=== PATIENT | male | born 1975 | race Caucasian/White ===

== ENCOUNTER 2016-09-30 19:18 | Emergency (ER) | payer OTHER ==
[2016-09-30 19:32] VITALS: BP 151/80; PULSE 76; TEMP 98; BMI 31.8
[2016-09-30] MEDS ORDERED: DIPHTH,PERTUSS(ACELL),TET 0.5 ML DISP.SYRIN IM ONE (20:31)
[2016-09-30] MEDS ORDERED: IBUPROFEN 600 MG TABLET (FP) PO ONE ×2 (20:32→20:33)
--- NOTE | 2016-09-30 20:37 | PDOC ---
History of Present Illness - General Chief Complaint: Laceration Stated Complaint: LACERATION Time Seen by Provider: 09/30/16 19:44 History Source: Patient Exam Limitations: No Limitations - History of Present Illness Initial Comments: 09/30/16 20:32 Patient tripped and fell striking the edge of a wall plate light fixture incurring a laceration to the left crown of his head. States cleaned it would not stop bleeding so came for evaluation. Uncertain as to tetanus status Timing/Duration: reports: just prior to arrival Severity: Yes: mild, moderate Location: reports: scalp Associated Symptoms: reports: denies symptoms Past History - Travel Traveled outside of the country in the last 30 days: No Close contact w/someone who was outside of country & ill: No - Past Medical History Allergies/Adverse Reactions: Allergies Allergy/AdvReac Type Severity Reaction Status Date / Time No Known Allergies Allergy Verified 09/30/16 19:30 Home Medications: Ambulatory Orders Ibuprofen [Motrin] 600 mg PO TID PRN #20 tablet 02/11/13 Suicide Attempt (Hx): No - Immunization History Immunization Up to Date: No - Psycho/Social/Smoking Cessation Hx Anxiety: No Suicidal Ideation: No Smoking Status: No Smoking History: Never smoked Number of Cigarettes Smoked Daily: 0 Drug/Substance Use Hx: No Substance Use Type: None Review of Systems - Review of Systems Able to Perform ROS?: Yes Is the patient limited [place] proficient: Yes Constitutional: Yes: See HPI. No: Symptoms Reported HEENTM: Yes: Symptoms Reported, See HPI, Other (scalp pain and mild headache) Integumentary: Yes: Symptoms Reported, See HPI, Other (laceration to left scalp) Neurological: Yes: See HPI, Headache. No: Symptoms reported All Other Systems: Reviewed and Negative *Physical Exam - Vital Signs Last Vital Signs Temp Pulse Resp BP Pulse Ox 98 F 76 18 151/80 98 09/30/16 19:31 09/30/16 19:31 09/30/16 19:31 09/30/16 19:31 09/30/16 19:31 - Physical Exam General Appearance: Yes: Nourished, Appropriately Dressed, Apparent Distress HEENT: positive: JIMBO, Normal ENT Inspection, TMs Normal, Pharynx Normal, Other (3 cm laceration to the left aspect crown of head, no active pulsatile bleeding but bruising. No hematoma noted.) Neck: positive: Supple. negative: Lymphadenopathy (R), Lymphadenopathy (L) Respiratory/Chest: positive: Lungs Clear, Normal Breath Sounds Procedures - Laceration/Wound Repair Left Head Wound Length: 2.6 to 5.0 cm Wound Explored: clean Wound's Depth, Shape: superficial, linear Irrigated w/ Saline: No Anesthesia: 1% Lidocaine w/ Epi Wound Repaired With: Custar Number of Sutures: 6 Layer Closure: No Progress Note - Progress Note Progress Note: Scalp laceration repaired with 6 celina. Patient tolerated well. Tetanus/ diphtheria/pertussis booster updated today *DC/Admit/Observation/Transfer Diagnosis at time of Disposition: Scalp laceration Qualifiers: Encounter type: initial encounter Qualified Code(s): S01.01XA - Laceration without foreign body of scalp, initial encounter - Discharge Dispostion Disposition: HOME Condition at time of disposition: Stable Admit: No - Patient Instructions Printed Discharge Instructions: DI for Laceration Repair of the Scalp Additional Instructions: Rest, no exercise or gym until celina are removed May use ice packs tonight as needed for swelling and pain Put a towel over pillow/old pillowcase to avoid damage from bacitracin and bleeding to linens until celina removed Use antibiotic cream/ointment once in the morning once at night until celina are removed May use Tylenol or Motrin for pain relief Return to emergency department for worsening pain, swelling, bleeding, or evidence of serious head injury Staple removal in 5-7 days - Post Discharge Activity Work/School Note: Back to Work
== END 2016-09-30 20:44 | disposition home or self-care (01) ==
LOC: JERFT 19:18
PROC: 3E0234Z Introduction of Serum, Toxoid and Vaccine into Muscle, Percutaneous Approach (ICD-10-PCS; principal; 2016-09-30)
PROC: 0HQ0XZZ Repair Scalp Skin, External Approach (ICD-10-PCS; 2016-09-30)
DX: S01.01XA Laceration without foreign body of scalp, initial encounter (principal); W01.198A Fall on same level from slipping, tripping and stumbling with subsequent striking against other object, initial encounter; Y93.89 Activity, other specified; Y92.89 Other specified places as the place of occurrence of the external cause; Y99.8 Other external cause status
CPT/HCPCS: 12002-25; 90471; 90715; 99281-25

== ENCOUNTER 2016-10-04 15:34 | Emergency (ER) | payer OTHER ==
[2016-10-04 15:44] VITALS: BP 144/90; PULSE 75; TEMP 98.1; BMI 31.8
--- NOTE | 2016-10-04 16:10 | PDOC ---
Suture Removal/Wound Check HPI - History of Present Illness Chief Complaint: Suture/Staple Removal(Here) Stated Complaint: SUTURE REMOVAL Time Seen by Provider: 10/04/16 16:05 History Source: Yes: Patient Exam Limitations: Yes: No Limitations Treated at: [facility] ED - Previous ED Treatment Type of procedure performed on last visit: Yes: Laceration Repair Tetanus Immunization: Yes: Up to Date Antibiotics Prescribed: No Past History - Travel Traveled outside of the country in the last 30 days: No Close contact w/someone who was outside of country & ill: No - Past Medical History Allergies/Adverse Reactions: Allergies No Known Allergies Allergy (Verified 10/04/16 15:44) Home Medications: Ambulatory Orders NK [No Known Home Medication] 10/04/16 General: Yes: no pertinent history - Immunization History Immunizations Up to Date: No Tetanus Status: Unknown - Social History Smoking History: No Smoking Status: Never smoked Number of Ciarettes Per Day: 0 Alcohol Use: none Drug Use: none Suture Removal/Wound Check PE - Physical Exam Laceration/Wound Check Symptoms: reports: None Current Severity Level: None *Review of Systems - Review of Systems Able to Perform ROS?: Yes Constitutional: Yes: See HPI. No: Symptoms Reported, Chills, Fever HEENTM: Yes: See HPI, Other (some bleeding at time of staple repair, but resolved). No: Symptoms Reported Respiratory: No: Symptoms reported Cardiac (ROS): No: Symptoms Reported Integumentary: Yes: See HPI. No: Symptoms Reported Neurological: Yes: See HPI. No: Symptoms reported, Headache Medical Decision Making - Medical Decision Making 10/04/16 16:09 6 celina removed without incident, some wound dehiscence at the proximal aspect of his scalp laceration with some oozing bleeding, but no evidence of cellulitis or reserved hematoma. Instructed patient to continue bacitracin ointment until completely healed and scabs are gone. *DC/Admit/Observation/Transfer Diagnosis at time of Disposition: Encounter for removal of celina - Discharge Dispostion Disposition: HOME Condition at time of disposition: Stable Admit: No
== END 2016-10-04 16:10 | disposition home or self-care (01) ==
LOC: JER 15:34 → JERFT 15:34
DX: Z48.02 Encounter for removal of sutures (principal)
CPT/HCPCS: 99281-25